=== PATIENT | female | born 1980 | race African-American/Black ===

== ENCOUNTER 2017-04-11 07:28 | Emergency (ER) | payer OTHER ==
[~2017-04-11] VITALS: Ht 160 cm; Wt 62.7 kg
[~2017-04-11 07:28] MED LIST: IBUP800 PO; METH500T3 PO; MSIR15 PO; PRED50TA PO; TIZA4 PO
[2017-04-11 07:44] VITALS: BP 111/81; PULSE 77; RESP 16; TEMP 97.6; O2SAT 100
--- NOTE | 2017-04-11 08:08 | PD ---
HPI . Headache Chief Complaint: Headache Time Seen by Provider: 08:03 Travel History International Travel<30 days: No Contact w/Intl Traveler<30days: No Traveled to known affect area: No History of Present Illness HPI Patient presents complaining with a headache which started last night. Onset has been gradual with progressive worsening. She describes a left-sided pressure which she rates as 10/10. She states that it is associated with nausea and vomiting as well as photophobia. Symptoms have been unrelieved by Tylenol. No noted exacerbating symptoms. Positive previous similar history. PFSH Past Medical History Diminished Hearing: No Musculoskeletal: Yes (chronic neck pain) Pneumonia: Yes (2000) Tetanus Vaccination: Unknown ?: Not LMP: 1 week ago Menopausal: No : 6 Para: 3 Miscarriage: 1 : 2 Past Surgical History Section: Yes (2) Social History Alcohol Use: Yes (SOCIALLY) Tobacco Use: Yes (/ pk) Substance Use: No Allergies-Medications (Allergen,Severity, Reaction): Coded Allergies: No Known Allergies (Verified , 04/11/17) Reported Meds & Prescriptions Reported Meds & Active Scripts Active No Active Prescriptions or Reported Medications Review of Systems Except as stated in HPI: all other systems reviewed are Neg General / Constitutional: No: Fever, Chills Eyes: Positive: Photophobia, No: Blurred Vision HENT: Positive: Headaches Gastrointestinal: Positive: Nausea, Vomiting Physical Exam Narrative GENERAL: Awake and alert and in no acute distress. SKIN: Warm and dry. HEAD: Atraumatic. Normocephalic. EYES: Pupils equal and round. Extraocular movements are intact. NECK: Trachea midline. Neck is supple. CARDIOVASCULAR: Regular rate and rhythm. RESPIRATORY: No accessory muscle use. MUSCULOSKELETAL: No obvious deformities. No edema. NEUROLOGICAL: Awake and alert. No obvious cranial nerve deficits. Motor grossly within normal limits. Normal speech. Eokjze-xrse-[id number] exam is intact. Gait is normal. PSYCHIATRIC: Appropriate mood and affect; insight and judgment normal. Data Data Last Documented VS Vital Signs Date Time Temp Pulse Resp B/P Pulse Ox O2 Delivery O2 Flow Rate FiO2 04/11/17 07:49 16 100 Room Air 04/11/17 07:44 97.6 77 111/81 Orders Iv Access Insert/Monitor (04/11/17 08:04) Sodium Chloride 0.9% Flush (Ns Flush) (04/11/17 08:15) Prochlorperazine Inj (Compazine Inj) (04/11/17 08:15) Diphenhydramine Inj (Benadryl Inj) (04/11/17 08:15) MDM Medical Decision Making Medical Screen Exam Complete: Yes Emergency Medical Condition: Yes Differential Diagnosis Differential diagnosis of headache includes but is not limited to migraine, muscle contraction headache, brain tumor, brain bleed Narrative Course Patient presents complaining with a left-sided headache which is typical for her migraine. She will be treated with Compazine and Benadryl. I anticipate discharge shortly. Headache is improving. Diagnosis Primary Impression: Migraine headache Qualified Code: G43.009 - Migraine without aura and without status migrainosus , not intractable Patient Instructions: General Instructions, Migraine Headache (DC) Scripts No Active Prescriptions or Reported Meds Disposition: 01 DISCHARGE HOME Condition: Stable Alaina Motley MD April 11, 2017 08:08
[2017-04-11] MEDS ORDERED: PROCHLORPERAZINE INJ 10 MG/2 ML VIAL IVP ONE (08:15)
[2017-04-11] MEDS ORDERED: diphenhydrAMINE HCL 50 MG/ML VIAL IVP ONE (08:15)
[2017-04-11] MEDS ORDERED: SODIUM CHLORIDE 0.9% FLUSH 10 ML FLUSH IVF PRN (08:15)
[2017-04-11 08:57] VITALS: BP 98/59
== END 2017-04-11 09:09 | disposition home or self-care (01) ==
LOC: PHED 07:28
DX: G43.009 Migraine without aura, not intractable, without status migrainosus (principal)
CPT/HCPCS: 96374; 96375; 99283; J0780; J1200

== ENCOUNTER 2018-01-26 09:25 | Emergency (ER) | payer OTHER ==
[~2018-01-26] VITALS: Ht 160 cm; Wt 59.7 kg
[2018-01-26 09:28] VITALS: BP 109/64; PULSE 89; RESP 18; TEMP 98; O2SAT 99
[2018-01-26] MEDS ORDERED: AZIT250T3 PO (09:39)
[2018-01-26] MEDS ORDERED: BENZ100 PO (09:39)
[2018-01-26] MEDS ORDERED: PRED20 PO (09:39)
--- NOTE | 2018-01-26 09:43 | PD ---
HPI Chief Complaint: Cold / Flu Symptoms Time Seen by Provider: 09:34 Travel History International Travel<30 days: No Contact w/Intl Traveler<30days: No Traveled to known affect area: No History of Present Illness HPI 37-year-old female that presents to the ED for evaluation of cold-like symptoms. Patient has a cold like symptoms for about 4 days now. Patient she has two kids and her house to have been recently sick. Per patient she believes that she got from them. Her daughter apparently got the flu but she does not believe she got the flu. Per patient her only symptom is some chest discomfort that appears to have improved after coughing. Per patient she is able to cough now actively and most of the symptoms appear to have improve except the cough is so severe tonight that causes her not to sleep. She denies any urinary or bowel movement issues. No abdominal pain. Congestion noted. Per patient she had sweats. No recent travel. No injuries. No history of COPD or asthma. Has been taking OTC meds with some relief. No allergies to medication. PFSH Past Medical History Diminished Hearing: No Musculoskeletal: Yes (chronic neck pain) Pneumonia: Yes (2000) ?: Not Menopausal: No : 6 Para: 3 Miscarriage: 1 : 2 Past Surgical History Section: Yes (2) Social History Alcohol Use: Yes (SOCIALLY) Tobacco Use: Yes (1/2 pk) Substance Use: No Allergies-Medications (Allergen,Severity, Reaction): Coded Allergies: No Known Allergies (Verified Adverse Reaction, Unknown, 01/26/18) Reported Meds & Prescriptions Reported Meds & Active Scripts Active Prednisone 20 Mg Tab 20 Mg PO BID 5 Days Tessalon Perles (Benzonatate) 100 Mg Cap 100 Mg PO TID PRN Azithromycin 250 Mg Tab 250 Mg PO DIRECTED Take 2 tabs (500 mg) on day 1 then 1 tab daily x 4 days. Review of Systems Except as stated in HPI: all other systems reviewed are Neg Physical Exam Narrative GENERAL: Well-nourished, well-developed patient in no apparent distress. SKIN: Warm and dry. HEAD: Atraumatic. Normocephalic. EYES: Pupils equal and round reactive to light and accommodation. No scleral icterus. No injection or drainage. ENT: No nasal bleeding or discharge. Mucous membranes pink and moist. TMs are clear with no sign of infection or perforation. No mastoid tenderness. Ear canals are intact bilaterally. No lymphadenopathy. Nostril mucosa is red and moist with clear mucus noted. No sinus tenderness to palpation noted. Tonsils are not enlarged or swollen. No ulvua Deviation. Tongue is midline. NECK: Trachea midline. No JVD. No meningeal signs noted CARDIOVASCULAR: Regular rate and rhythm. RESPIRATORY: No accessory muscle use. Clear to auscultation. Breath sounds equal bilaterally. GASTROINTESTINAL: Abdomen soft, non-tender, nondistended. Hepatic and splenic margins not palpable. MUSCULOSKELETAL: Extremities without clubbing, cyanosis, or edema. No obvious deformities. NEUROLOGICAL: Awake and alert. No obvious cranial nerve deficits. Motor grossly within normal limits. Five out of 5 muscle strength in the arms and legs. Normal speech. PSYCHIATRIC: Appropriate mood and affect; insight and judgment normal. Data Data Last Documented VS Vital Signs Date Time Temp Pulse Resp B/P (MAP) Pulse Ox O2 Delivery O2 Flow Rate FiO2 01/26/18 09:28 98.0 89 18 109/64 (79) 99 Orders Orders Ed Discharge Order (01/26/18 09:40) MDM Medical Decision Making Medical Screen Exam Complete: Yes Emergency Medical Condition: Yes Medical Record Reviewed: Yes Differential Diagnosis Bronchitis versus pneumonia versus sinusitis versus URI versus viral illness Narrative Course 37-year-old female that presents to the ED for evaluation of cold-like symptoms. Patient was properly examined and was found to have signs and symptoms consistent appears to be likely bronchitis.. Likely viral as patient states that her symptoms have somewhat improved. I will treat with azithromycin , Tessalon Perles and prednisone to cover for bacterial infection and to help with symptoms. She understands reasons to come back. To take OTC meds as needed. Follow with PCP. Given note for work. See ED if worse. Diagnosis Primary Impression: Bronchitis Patient Instructions: General Instructions Departure Forms: Tests/Procedures, Work Release Enter return to work date: Jan 28, 2018 Additional Instructions: Motrin and Tylenol for pain and fever. You can use [id number] antihistamine as well as well as Mucinex as needed for runny nose and congestion. Cough drops for cough as needed. Drink plenty of fluids. Follow-up with PCP. See ED for worsening symptoms. Med/Other Pt SpecificInfo: Prescription(s) given Scripts Prednisone (Prednisone) 20 Mg Tab 20 MG PO BID for 5 Days, #10 TAB 0 Refills Prov: Kati Hsu MD 01/26/18 Benzonatate (Tessalon Perles) 100 Mg Cap 100 MG PO TID Y for COUGH, #15 CAP 0 Refills Prov: Kati Hsu MD 01/26/18 Azithromycin (Azithromycin) 250 Mg Tab 250 MG PO DIRECTED for Infection, #6 TAB 0 Refills Take 2 tabs (500 mg) on day 1 then 1 tab daily x 4 days. Prov: Kati Hsu MD 01/26/18 Disposition: 01 DISCHARGE HOME Condition: Stable Todd Modi Jan 26, 2018 09:43
== END 2018-01-26 10:00 | disposition home or self-care (01) ==
LOC: PHEFT 09:25
DX: J40 Bronchitis, not specified as acute or chronic (principal); F17.210 Nicotine dependence, cigarettes, uncomplicated
CPT/HCPCS: 99283